=== PATIENT | female | born 1950 | race Caucasian/White ===

== ENCOUNTER 2022-04-07 10:44 | Emergency (ER) | payer MEDICARE, OTHER, SELFPAY ==
[2022-04-07 10:55] VITALS: BP 165/98; PULSE 81; RESP 16; TEMP 36.9; O2SAT 100; BMI 22.2
[2022-04-07] MEDS: TET,DIPH,PERTUSS(ACELL),VAC/PF 0.5 ML SYRINGE IM (12:29)
[2022-04-07] MEDS: LIDOCAINE 1% (PF) 2 ML (12:30)
--- NOTE | 2022-04-07 12:55 | ED_ITS ---
HPI - Wound/Laceration <SULEMA Rivas - Last Filed: 04/07/22 16:39> General Chief Complaint: Wound/Laceration Stated Complaint: Cut on chin Time Seen by Provider: 04/07/22 12:05 History of Present Illness HPI narrative: This is a 71-year-old female presents to the emergency department with a laceration to her right chin near her lower lip which occurred when she slipped on a trail this morning and fell forward striking her face on a tree. She states that the tree was covered in bark so she does not know where the laceration came from. Patient states it is possible that her top teeth cut her bottom lip, the laceration goes up to the bottom lip vermilion border but does not extend beyond it. Approximately 2 cm, bleeding is controlled, patient states that she slept outside last night, denies any worsening pain, swelling, denies any contamination of her wound she knows of. She states that her tetanus is likely out of date, requesting you in today. She denies any need for pain medication, denies any fever, other wounds, denies any loss of consciousness, vision changes, headache. Review of Systems <SULEMA Rivas - Last Filed: 04/07/22 16:39> Review of Systems Narrative: General: denies fever, chills Head/Neck: denies headache, neck pain Eyes: denies visual changes, eye pain Cardio: denies chest pain, palpitations Respiratory: denies shortness of breath, cough GI: denies abdominal pain, nausea, vomiting, or diarrhea : denies dysuria, hematuria or flank pain MSK: denies new joint pain, muscle weakness or swelling Skin: denies rash, itching, endorses laceration to her bottom lip and chin Neuro: denies numbness, tingling, dizziness Exam <USLEMA Rivas - Last Filed: 04/07/22 16:39> Narrative Exam Narrative: Independently reviewed vitals signs and nursing notes. General: Awake, alert, nontoxic, no cardiorespiratory distress Head/Neck: neck supple without tenderness to her C-spine with palpation, no tenderness over mastoids, only trauma is her laceration on her bottom lip/chin, approximately 2 cm, linear with irregularity, likely a laceration from her upper teeth as it lines up with them perfectly. No intraoral laceration or wound, wound was cleansed with chlorhexidine and normal saline, this was irrigated, suture repair completed with good approximation, four six 0 Ethilon sutures were used and bacitracin was applied topically with Band-Aid. Eyes: EOMI, conjunctiva normal Nose: nares patent, no rhinorrhea Mouth/Throat: moist mucus membranes, posterior pharynx without erythema or lesion Cardio: Regular rate and rhythm, no peripheral edema Respiratory: respirations unlabored without wheezing, stridor, or rales. No retractions, hypoxia or tachypnea GI: Abdomen soft, nontender to palpation x4 quadrants, no guarding or rebound tenderness MSK: Moves all extremities, neurovascularly intact, range of motion without deficit Skin: Normal capillary refill, no rash Neuro: Normal speech and cognition, normal gait Initial Vital Signs Initial Vital Signs: Vital Signs Temperature 98.4 F 04/07/22 10:55 Pulse Rate 81 04/07/22 10:55 Respiratory Rate 16 04/07/22 10:55 Blood Pressure 165/98 H 04/07/22 10:55 Pulse Oximetry 100 04/07/22 10:55 Oxygen Delivery Method 04/07/22 10:55 <Shad Mcmahan MD - Last Filed: 04/25/22 10:16> Initial Vital Signs Initial Vital Signs: Vital Signs Temperature 98.4 F 04/07/22 10:55 Pulse Rate 81 04/07/22 10:55 Respiratory Rate 16 04/07/22 10:55 Blood Pressure 165/98 H 04/07/22 10:55 Pulse Oximetry 100 04/07/22 10:55 Oxygen Delivery Method 04/07/22 10:55 Procedures <SULEMA Rivas - Last Filed: 04/07/22 16:39> Laceration Repair Laceration 1: Site: face Size (cm): 2 Description: linear and irregular Depth: simple, single layer Local Anesthetic: lidocaine 1% Amount of anesthesia used (mL): 2 Pre-repair: wound explored, irrigated extensively, deep structures intact and cleansed with chlorhexadine Skin layer closed with: nylon Skin layer suture size: 6-0 Number of sutures: 4 Technique: simple, interrupted Course <SULEMA Rivas - Last Filed: 04/07/22 16:39> Orders Ordered: Discontinued Medications Diphtheria/Tetanus/Acell Pertussis (Tet,Diph,Pertuss(Acell),Vac/Pf 0.5 Ml Syringe) 0.5 ml IM .ONCE ONE Stop: 04/07/22 11:02 Last Admin: 04/07/22 12:29 Dose: 0.5 ml Documented By: CTS Lidocaine HCl (Lidocaine 2% Inj Mdv) 1 ml SUBCUT NOW ONE Stop: 04/07/22 12:06 Last Admin: 04/07/22 12:29 Dose: Not Given Documented By: CTS Vital Signs Vital signs: Vital Signs - 8 hr 04/07/22 10:55 Temperature 98.4 F Pulse Rate 81 Respiratory Rate 16 Blood Pressure 165/98 H Pulse Oximetry 100 Oxygen Delivery Method Room Air <Shad Mcmahan MD - Last Filed: 04/25/22 10:16> Orders Ordered: Discontinued Medications Diphtheria/Tetanus/Acell Pertussis (Tet,Diph,Pertuss(Acell),Vac/Pf 0.5 Ml Sy ringe) 0.5 ml IM .ONCE ONE Stop: 04/07/22 11:02 Last Admin: 04/07/22 12:29 Dose: 0.5 ml Documented By: CTS Lidocaine HCl (Lidocaine 2% Inj Mdv) 1 ml SUBCUT NOW ONE Stop: 04/07/22 12:06 Last Admin: 04/07/22 12:29 Dose: Not Given Documented By: CTS Vital Signs Vital signs: Vital Signs - 8 hr 04/07/22 10:55 Temperature 98.4 F Pulse Rate 81 Respiratory Rate 16 Blood Pressure 165/98 H Pulse Oximetry 100 Oxygen Delivery Method Room Air MDM - Wound/Laceration <SULEMA Rivas - Last Filed: 04/07/22 16:39> [facility] Narrative Medical decision making narrative: This is a pleasant 71-year-old female who presents to the emergency department after she slipped on a trail falling forward and caught a tree but impacted a tree with her face and sustained a 2 cm laceration to her chin/bottom lip. This is likely from her upper teeth, it did not go through and through, no intraoral laceration. Patient's tetanus vaccination was updated, bleeding was controlled with pressure prior to arrival, wound was thoroughly cleansed with chlorhexidine and normal saline, irrigated without any foreign debris. Wound edges were well approximated with suture repair, patient understands to have her sutures removed in five days, she was prescribed Keflex for three days for infection prophylaxis and topical mupirocin ointment. She is encouraged to keep her wound out of the sun, apply SPF if in the sun or cover with a Band-Aid. Patient understands to return emergency depart for any new or worsening symptoms, Patient is appropriate and amenable to discharge home. Vital signs are stable on repeat examination is unremarkable. Patient has been informed of results. Patient has been given strict return to ER precautions for any new or worsening symptoms. Patient understands to follow up closely with outpatient providers as instructed. Patient understands plan and agrees to discharge home. All questions and concerns answered at this time. Discharge Plan Departure Patient Disposition: Home Clinical Impression: Laceration Instructions: How to Care for a Laceration After Repair, DI for Laceration Repair Activity Restrictions/Additional Instructions: *You have been diagnosed with a laceration to your chin without crossing the vermilion border. Please have your sutures removed in five days. Keep your wound protected from the sun, cover it with Aquaphor or antibiotic ointment. I have sent some ointment to the pharmacy along with three days of infection prophylaxis antibiotics. Please try and keep it covered with a Band-Aid to prevent sea water or other fun things from outside getting into it. I hope you enjoy the rest of your weekend, thank you for trusting us with your care, I hope you have a good rest of your weekend. Your tetanus was updated today, you do not need another vaccination for 10 years. *What to do: *Please continue to take your regular medications as directed. [ x] New medication prescriptions sent to your pharmacy: [[facility] ] [ ] New medication written as a paper prescription [ ] No new medications given *Please follow up with your primary care provider in 2-3 days, call for an appointment. Let them know you were seen in the Emergency Department and that we asked that you be seen for follow-up. We will electronically transmit a record of today's note if your PCP is in our system *If you do not have a primary care provider please contact [phone] to establish care with one of the [facility] primary care providers. *Return to Emergency Department if you should have any new, worsening or concerning symptoms, such as [fever greater than 101F, chills, worsening pain, persistent vomiting or other bothersome symptoms] Visit Report Forms: Patient Portal/API <Shad Mcmahan MD - Last Filed: 04/25/22 10:16> Cosign ED Attending Cosignature Attestation: I was immediately available for consultation of this patient was seen and evaluated by the APC in the department.
== END 2022-04-07 13:05 | disposition home or self-care (01) ==
PROVIDERS: Emergency Provider Nurse Practitioner Critical Care Medicine
DX: S01.81XA Laceration without foreign body of other part of head, initial encounter (principal); W22.8XXA Striking against or struck by other objects, initial encounter; Z23 Encounter for immunization
CPT/HCPCS: 12011; 90471; 99283; 90715